=== PATIENT | female | born 1960 | race Caucasian/White ===

== ENCOUNTER → 2017-10-09 | Outpatient (CLI) | payer OTHER | END | disposition home or self-care (01) | LOC: LABWHC1 15:49 | PROVIDERS: ATTEND Internal Medicine Endocrinology, Diabetes & Metabolism | DX: E03.8 Other specified hypothyroidism (principal) | CPT/HCPCS: 36415; 84443 ==

== ENCOUNTER → 2017-12-05 | Outpatient (CLI) | payer OTHER | END | disposition home or self-care (01) | LOC: LABWHC1 11:31 | PROVIDERS: ATTEND Internal Medicine Endocrinology, Diabetes & Metabolism | DX: E03.8 Other specified hypothyroidism (principal) | CPT/HCPCS: 36415; 84443 ==

== ENCOUNTER → 2018-06-11 | Outpatient (CLI) | payer OTHER | LOC: LABWHC1 15:56 | PROVIDERS: ATTEND Internal Medicine Endocrinology, Diabetes & Metabolism | DX: E03.8 Other specified hypothyroidism (principal) | CPT/HCPCS: 36415; 84443 ==

== ENCOUNTER 2019-07-03 15:08 | Observation (INO) | payer OTHER ==
[2019-07-03] MEDS ORDERED: SODIUM CHLORIDE 0.9% 1,000 ML IV STA (15:31)
[2019-07-03] MEDS ORDERED: DILTIAZEM DRIP BOLUS FROM BAG 1 MG SOLN IV ONE (15:31)
--- NOTE | 2019-07-03 15:35 | ED ---
General Adult HPI - General Chief complaint: Arrhythmia/Palpitations Stated complaint: Heart palpitations Time Seen by Provider: 07/03/19 15:18 Source: patient, family, RN notes reviewed Mode of arrival: ambulatory Limitations: no limitations - History of Present Illness Initial comments: Patient is a pleasant 59-year-old female presenting to the emergency Department with complaints of palpitations. Onset of symptoms was just over half hour ago. Symptoms are sudden onset. Patient did have some chest discomfort associated however that has resolved. Palpitations are more mild at this time. Patient has had similar symptoms previously however they usually only last several minutes. Patient has had problems with thyroid previously including being overmedicated. Patient did have recent change in medications. No history of previous diagnosis arrhythmia. - Related Data Home Medications Medication Instructions Recorded Confirmed Estradiol 3 mg PO BID 07/03/19 07/03/19 Levothyroxine Sodium [Tirosint] 137 mcg PO DAILY 07/03/19 07/03/19 Liothyronine Sodium [Cytomel] 5 mcg PO DAILY 07/03/19 07/03/19 Naproxen 250 mg PO Q12H PRN 07/03/19 07/03/19 Progesterone, Micronized 100 mg PO BID 07/03/19 07/03/19 [Progesterone] buPROPion XL [Wellbutrin Xl] 150 mg PO DAILY 07/03/19 07/03/19 Allergies Allergy/AdvReac Type Severity Reaction Status Date / Time No Known Allergies Allergy Verified 07/03/19 15:24 Review of Systems ROS Statement: Those systems with pertinent positive or pertinent negative responses have been documented in the HPI. ROS Other: All systems not noted in ROS Statement are negative. Constitutional: Denies: fever Eyes: Denies: eye pain ENT: Denies: ear pain Respiratory: Denies: dyspnea Cardiovascular: Reports: as per HPI, palpitations Endocrine: Denies: fatigue Gastrointestinal: Denies: abdominal pain Genitourinary: Denies: dysuria Musculoskeletal: Denies: back pain Skin: Denies: rash Neurological: Denies: weakness Past Medical History Past Medical History: Thyroid Disorder Additional Past Medical History / Comment(s): SCREENING History of Any Multi-Drug Resistant Organisms: None Reported Additional Past Surgical History / Comment(s): D & C Past Anesthesia/Blood Transfusion Reactions: No Reported Reaction Past Psychological History: Anxiety, Depression Smoking Status: Former smoker Past Alcohol Use History: None Reported Past Drug Use History: None Reported - Past Family History Mother History Unknown: Yes Additional Family Medical History / Comment(s): PT ADOPTED-HHX UNKNOWN General Exam Limitations: no limitations General appearance: alert, in no apparent distress Head exam: Present: normocephalic Eye exam: Present: normal appearance, PERRL ENT exam: Present: normal oropharynx Neck exam: Present: normal inspection Respiratory exam: Present: normal lung sounds bilaterally Cardiovascular Exam: Present: tachycardia, irregular rhythm Expanded Peripheral pulses: 2+: Radial (R), Radial (L), Posterior Tibialis (R), Posterior Tibialis (L), Dorsalis Pedis (R), Dorsalis Pedis (L) GI/Abdominal exam: Present: soft. Absent: tenderness Extremities exam: Present: normal inspection. Absent: pedal edema, calf tenderness Neurological exam: Present: alert Psychiatric exam: Present: normal affect, normal mood Skin exam: Present: normal color Course Vital Signs 07/03/19 07/03/19 15:09 16:17 Temperature 98.1 F 98.4 F Pulse Rate 152 H 112 H Respiratory 26 H 18 Rate Blood Pressure 107/74 126/98 O2 Sat by Pulse 100 100 Oximetry EKG Findings - EKG Comments: EKG Findings:: A. fib with RVR, rate 152. QRS 72. QT 292. QTC 464. Septal Q waves. Borderline inferior lateral ST depression. Medical Decision Making - Medical Decision Making Patient reevaluated and resting comfortably in bed. Heart rate improved with a rate between 96 and 104. Patient and family updated on results and plan. Dr. Haley has been paged for admission for this va patient. - Lab Data Result diagrams: 07/03/19 15:20 07/03/19 15:20 Lab Results 07/03/19 07/03/19 07/03/19 Range/Units 15:20 15:20 15:20 WBC 9.2 (3.8-10.6) k/uL RBC 3.96 (3.80-5.40) m/uL Hgb 13.2 (11.4-16.0) gm/dL Hct 40.5 (34.0-46.0) % MCV 102.5 H (80.0-100.0) fL MCH 33.3 (25.0-35.0) pg MCHC 32.5 (31.0-37.0) g/dL RDW 12.4 (11.5-15.5) % Plt Count 254 (150-450) k/uL Neutrophils % 54 % Lymphocytes % 36 % Monocytes % 3 % Eosinophils % 2 % Basophils % 1 % Neutrophils # 5.0 (1.3-7.7) k/uL Lymphocytes # 3.3 (1.0-4.8) k/uL Monocytes # 0.3 (0-1.0) k/uL Eosinophils # 0.2 (0-0.7) k/uL Basophils # 0.1 (0-0.2) k/uL Macrocytosis Slight PT 10.8 (9.0-12.0) sec INR 1.0 (<1.2) APTT 21.2 L (22.0-30.0) sec Sodium 132 L (137-145) mmol/L Potassium 4.7 (3.5-5.1) mmol/L Chloride 104 (98-107) mmol/L Carbon Dioxide 18 L (22-30) mmol/L Anion Gap 10 mmol/L BUN 16 (7-17) mg/dL Creatinine 0.88 (0.52-1.04) mg/dL Est GFR (CKD-EPI)AfAm 84 (>60 ml/min/1.73 sqM) Est GFR (CKD-EPI)NonAf 73 (>60 ml/min/1.73 sqM) Glucose 173 H (74-99) mg/dL Calcium 9.1 (8.4-10.2) mg/dL Magnesium 1.8 (1.6-2.3) mg/dL Total Bilirubin 0.4 (0.2-1.3) mg/dL AST 81 H (14-36) U/L ALT 50 H (4-34) U/L Alkaline Phosphatase 70 (38-126) U/L Troponin I (0.000-0.034) ng/mL Total Protein 6.6 (6.3-8.2) g/dL Albumin 4.2 (3.5-5.0) g/dL TSH 1.040 (0.465-4.680) mIU/L Free T4 1.25 (0.78-2.19) ng/dL Free T3 pg/mL 3.5 (2.8-5.3) pg/ml 03/07/20 Range/Units 15:20 WBC (3.8-10.6) k/uL RBC (3.80-5.40) m/uL Hgb (11.4-16.0) gm/dL Hct (34.0-46.0) % MCV (80.0-100.0) fL MCH (25.0-35.0) pg MCHC (31.0-37.0) g/dL RDW (11.5-15.5) % Plt Count (150-450) k/uL Neutrophils % % Lymphocytes % % Monocytes % % Eosinophils % % Basophils % % Neutrophils # (1.3-7.7) k/uL Lymphocytes # (1.0-4.8) k/uL Monocytes # (0-1.0) k/uL Eosinophils # (0-0.7) k/uL Basophils # (0-0.2) k/uL Macrocytosis PT (9.0-12.0) sec INR (<1.2) APTT (22.0-30.0) sec Sodium (137-145) mmol/L Potassium (3.5-5.1) mmol/L Chloride (98-107) mmol/L Carbon Dioxide (22-30) mmol/L Anion Gap mmol/L BUN (7-17) mg/dL Creatinine (0.52-1.04) mg/dL Est GFR (CKD-EPI)AfAm (>60 ml/min/1.73 sqM) Est GFR (CKD-EPI)NonAf (>60 ml/min/1.73 sqM) Glucose (74-99) mg/dL Calcium (8.4-10.2) mg/dL Magnesium (1.6-2.3) mg/dL Total Bilirubin (0.2-1.3) mg/dL AST (14-36) U/L ALT (4-34) U/L Alkaline Phosphatase (38-126) U/L Troponin I <0.012 (0.000-0.034) ng/mL Total Protein (6.3-8.2) g/dL Albumin (3.5-5.0) g/dL TSH (0.465-4.680) mIU/L Free T4 (0.78-2.19) ng/dL Free T3 pg/mL (2.8-5.3) pg/ml - Radiology Data Radiology results: image reviewed (Chest x-ray shows no acute process) Critical Care Time Critical Care Time: Yes Total Critical Care Time: 33 Disposition Clinical Impression: Atrial fibrillation with RVR Disposition: ADMITTED IP TO THIS HOSP Is patient prescribed a controlled substance at d/c from ED?: No Referrals: [facility],Clinic [Primary Care Provider] - 1-2 days Decision Time: 16:38
[2019-07-03] MEDS ORDERED: DILTIAZEM 125 MG in SODIUM CHLORIDE 0.9% 100 ML IV SCH (15:45)
--- NOTE | 2019-07-03 15:46 | XR ---
EXAMINATION TYPE: XR chest 2V DATE OF EXAM: 07/03/2019 COMPARISON: NONE HISTORY: Dysrhythmia TECHNIQUE: 2 views FINDINGS: Heart and mediastinum are normal. Lungs are clear. Diaphragm is normal. Bony thorax appears normal. IMPRESSION: Normal chest.
[2019-07-03 15:52] LABS: Basophils # (A) 0.1 k/uL (0-0.2); Basophils % (A) 1 %; Eosinophils # (A) 0.2 k/uL (0-0.7); Eosinophils % (A) 2 %; HCT 40.5 % (34.0-46.0); HGB 13.2 gm/dL (11.4-16.0); Lymphocytes # (A) 3.3 k/uL (1.0-4.8); Lymphocytes % (A) 36 %; MCH 33.3 pg (25.0-35.0); MCHC 32.5 g/dL (31.0-37.0); MCV 102.5 fL (80.0-100.0); Macrocytosis Slight; Mean Platelet Volume 9.9; Monocytes # (A) 0.3 k/uL (0-1.0); Monocytes % (A) 3 %; Neutrophils % (A) 54 %; Platelet Count 254 k/uL (150-450); RBC 3.96 m/uL (3.80-5.40); RDW 12.4 % (11.5-15.5); WBC 9.2 k/uL (3.8-10.6)
[2019-07-03 16:02] LABS: Albumin 4.2 g/dL (3.5-5.0); Calcium 9.1 mg/dL (8.4-10.2); Magnesium 1.8 mg/dL (1.6-2.3); Potassium 4.7 mmol/L (3.5-5.1); Total Bilirubin 0.4 mg/dL (0.2-1.3); Total Protein 6.6 g/dL (6.3-8.2)
[2019-07-03 16:19] LABS: T4, Free (Free Thyroxine) 1.25 ng/dL (0.78-2.19)
[2019-07-03 16:20] LABS: Prothrombin Time 10.8 sec (9.0-12.0)
[2019-07-03 16:21] LABS: Partial Thromboplastin Time 21.2 sec (22.0-30.0)
[2019-07-03] MEDS ORDERED: HEPARIN SODIUM,PORCINE 5,000 UNIT/ML 1 ML VIAL IV ONE (16:38)
[2019-07-03] MEDS ORDERED: ASPIRIN 81 MG PO STA (16:38)
[2019-07-03] MEDS ORDERED: HEPARIN SODIUM,PORCINE 5,000 UNIT/ML 1 ML VIAL IV PRN (16:38)
[2019-07-03] MEDS ORDERED: NITROGLYCERIN SL TABS 0.4 MG TAB SUBLINGUAL PRN (16:38)
[2019-07-03] MEDS ORDERED: HEPARIN SOD,PORK IN 0.45% NACL 25,000 UNIT in 0.45% NACL 1 250ML.BAG IV SCH (16:45)
[2019-07-03] MEDS ORDERED: NAPROXEN 250 MG TAB PO PRN (18:33)
[2019-07-03] MEDS ORDERED: LORazepam 0.5 MG TAB PO PRN (18:37)
[2019-07-03] MEDS ORDERED: ACETAMINOPHEN TAB 500 MG TAB PO PRN (18:37)
[2019-07-03] MEDS ORDERED: TEMAZEPAM 15 MG CAP PO PRN (18:37)
[2019-07-03] MEDS: ESTRADIOL 0.5 MG TAB PO SCH (21:06)
--- NOTE | 2019-07-03 22:21 | HP ---
HISTORY AND PHYSICAL DATE OF SERVICE: 07/03/2019 CHIEF COMPLAINT: Chest pain. HISTORY OF PRESENT ILLNESS: This 59-year-old woman with a past medical history of multiple medical history hypothyroidism, history of history of anxiety and depression being followed by [facility] and in the outpatient setting is complaining of significant palpitations today. The patient felt some chest discomfort also and the symptoms of sudden onset. The patient came to [facility] and was found to be in atrial fibrillation with fast ventricular rate. The patient is on Cardizem drip and heart rate converted to normal sinus rhythm. The patient being monitored closely. There is no history of fever, rigors, chills, shortness of breath, hematochezia, melena at this time. PAST MEDICAL HISTORY: Hypothyroidism, D and C, anxiety, depression, history of nicotine dependence. MEDICATIONS: Prior to admission include: 1. Wellbutrin SR 150 mg p.o. b.i.d. 2. Naprosyn 250 mg b.i.d. p.r.n. 3. Tirosint 37 mcg p.o. daily. 4. Progesterone 100 mg p.o. 5. Estradiol 3 mg p.o. b.i.d. 6. Cytomel 5 mcg p.o. daily. ALLERGIES: None. FAMILY HISTORY: The patient is adopted, unknown. SOCIAL HISTORY: Previous history of smoking. Occasional alcohol intake. REVIEW OF SYSTEMS: ENT: No diminished vision. No diminished hearing. CARDIOVASCULAR SYSTEM: As mentioned earlier. RESPIRATORY: As mentioned earlier. GI no nausea or vomiting. no dysuria. Nervous system: No numbness or weakness. Allergy/Immunology: No asthma or hayfever. Musculoskeletal as mentioned earlier. Hematology/Oncology: No history of anemia. ENDOCRINE: No history of diabetes or hypothyroidism. CONSTITUTIONAL: As mentioned earlier. Dermatology: Negative. Rheumatology: Negative. Psychiatric: As mentioned earlier. PHYSICAL EXAMINATION: Alert and oriented times three. Pulse is 87. Previous pulse 152, blood pressure 106/74, respiration 26, temperature 98.4. Pulse ox 100 percent on room air. HEENT: Conjunctivae normal. NECK: No JVD. CARDIAC: S1, S2 muffled. No S3, no S4. RESPIRATION: Breath sounds diminished in the bases. No rhonchi. No crackles. ABDOMEN: Soft, nontender. No mass palpable. LEGS: No edema. No swelling. NERVOUS SYSTEM: Higher function as mentioned earlier. Moves all 4 limbs. No focal motor or sensory deficits. LYMPHATICS: No lymph nodes palpable in the neck, axillae or groin. SKIN no ulcers, no rashes and no bleeding. JOINTS: No active deforming arthropathy. LABS: WBC 9.3, MCV 102.5, and sodium is 132, CO2 is 18. Glucose 173, AST is 81, ALT is 50. ASSESSMENT: 1. Atrial fibrillation with fast ventricular rate. 2. Paroxysmal atrial fibrillation. 3. Increased AST/ALT. 4. Increased random blood sugar. 5. Hyponatremia. 6. Decreased CO2. 7. Increased MCV. 8. History of hypothyroidism. 9. Anxiety, depression. 10.Remote history of nicotine dependence. RECOMMENDATIONS AND DISCUSSION: In this 59-year-old woman who presented with multiple medical issues, we will monitor the patient closely, continue the current medications, management and symptomatic treatment. Otherwise cardiology consultation. We will recommend a 2D echo with Doppler in the morning and otherwise resume the home medications. The prognosis guarded because of multiple complex medical issues. further recommendations to follow. A copy of this dictation being forwarded to Dr. Hardwick who is following the patient in the outpatient setting. MMODL / IJN: [id number] / MTDD
[2019-07-03] MEDS: buPROPion SR 150 MG TABLET.ER PO SCH (22:33)
[2019-07-03] MEDS: PROGESTERONE MICRONIZED 100 MG PO SCH (22:34)
[2019-07-03 23:26] LABS: Appearance,Urine Clear (Clear); Bilirubin,Urine Negative (Negative); Blood,Urine Negative (Negative); Color,Urine Light Yellow; Glucose,Urine (UA) Negative (Negative); Ketones,Urine 1+ (Negative); Leukocyte Esterase,Urine Negative (Negative); Nitrite,Urine Negative (Negative); PH, Urine 5.5 (5.0-8.0); Protein,Urine Negative (Negative); Urobilinogen,Urine <2.0 mg/dL (<2.0)
[2019-07-04 03:59] LABS: Basophils # (A) 0.1 k/uL (0-0.2); Basophils % (A) 1 %; Eosinophils # (A) 0.2 k/uL (0-0.7); Eosinophils % (A) 2 %; HCT 32.3 % (34.0-46.0); HGB 10.5 gm/dL (11.4-16.0); Lymphocytes # (A) 2.3 k/uL (1.0-4.8); Lymphocytes % (A) 34 %; MCHC 32.4 g/dL (31.0-37.0); MCV 101.7 fL (80.0-100.0); Monocytes # (A) 0.3 k/uL (0-1.0); Monocytes % (A) 4 %; Neutrophils # (A) 3.7 k/uL (1.3-7.7); Neutrophils % (A) 56 %; Platelet Count 187 k/uL (150-450); RBC 3.18 m/uL (3.80-5.40); RDW 12.5 % (11.5-15.5); WBC 6.6 k/uL (3.8-10.6)
[2019-07-04 04:03] LABS: ALT 47 U/L (4-34); AST 48 U/L (14-36); African American GFR (CKD) >90 (>60 ml/min/1.73 sqM); Alkaline Phosphatase 42 U/L (38-126); Anion Gap 2 mmol/L; Blood Urea Nitrogen 13 mg/dL (7-17); Calcium 8.3 mg/dL (8.4-10.2); Carbon Dioxide 20 mmol/L (22-30); Chloride 111 mmol/L (98-107); Cholesterol 113 mg/dL (<200); Glucose 85 mg/dL (74-99); HDL Cholesterol 85 mg/dL (40-60); LDL Cholesterol,Calculated 10 mg/dL (0-99); Non-African American GFR(CKD) >90 (>60 ml/min/1.73 sqM); Potassium 4.2 mmol/L (3.5-5.1); Sodium 133 mmol/L (137-145); Total Bilirubin 0.3 mg/dL (0.2-1.3); Total Protein 5.3 g/dL (6.3-8.2); Triglycerides 91 mg/dL (<150)
[2019-07-04] MEDS ORDERED: LEVOTHYROXINE 137 MCG TAB PO SCH (06:30)
[2019-07-04] MEDS ORDERED: PANTOPRAZOLE 40 MG TABLET PO SCH (07:30)
[2019-07-04] MEDS ORDERED: LIOTHYRONINE SODIUM 5 MCG TAB PO SCH (09:00)
[2019-07-04] MEDS ORDERED: ASPIRIN 325 MG TAB PO SCH (09:00)
[2019-07-04] MEDS ORDERED: buPROPion XL 150 MG TAB.ER.24H PO SCH (09:00)
[2019-07-04] MEDS: buPROPion SR 150 MG TABLET.ER PO SCH (09:46)
[2019-07-04] MEDS: ESTRADIOL 0.5 MG TAB PO SCH (09:53)
[2019-07-04] MEDS: PROGESTERONE MICRONIZED 100 MG PO SCH (09:54)
--- NOTE | 2019-07-04 10:39 | P.CRDCN ---
History of Present Illness Consult date: 07/04/19 Requesting physician: Marce Haley Reason for Consult (text): New onset AF w/RVR Chief complaint: palpitations, near syncope History of present illness: This a pleasant 59-year-old female patient with history of hypothyroidism and complaints of palpitations over the past year. According to the patient, she recently began following with an mobile heavy equipment operator who changed her thyroid medications about 10 days ago. At that time she was noted to have a heart rate of around 140 while in the office but no EKG or further workup was done at that time. She has been having palpitations over the last year lasting a few minutes with no other symptoms. She presented to the emergency department yesterday with complaints of palpitations that were ongoing for at least a half hour as well as some associated dizziness, lightheadedness and near syncope as well as nausea and vomiting. EKG on presentation showed A. fib with RVR. She has not been previously diagnosed with atrial fibrillation in the past. Labs on admission showed BUN is 16, creatinine 0.88, troponins negative 3, normal TSH, free T4 and free T3. Was initially bolused and started on Cardizem drip at 5 mg an hour and subsequently converted to sinus rhythm while in the emergency department. She remains on heparin drip. Since arrival to the nursing unit blood pressure has been high 135-154/80 heart rate has been in the 70s to 90s. Overall she's feeling well. She denies any chest discomfort, shortness of breath, orthopnea, PND, or edema. She is a former smoker, quit many years ago, and drinks socially usually just one beer. She denies a history of snoring. No signs of sleep apnea. Past Medical History Past Medical History: Thyroid Disorder Additional Past Medical History / Comment(s): SCREENING History of Any Multi-Drug Resistant Organisms: None Reported Additional Past Surgical History / Comment(s): D & C Past Anesthesia/Blood Transfusion Reactions: No Reported Reaction Past Psychological History: Anxiety, Depression Smoking Status: Never smoker Past Alcohol Use History: None Reported Additional Past Alcohol Use History / Comment(s): QUIT SMOKING 20 YEARS AGO Past Drug Use History: None Reported - Past Family History Mother History Unknown: Yes Additional Family Medical History / Comment(s): PT ADOPTED-HHX UNKNOWN Medications and Allergies Home Medications Medication Instructions Recorded Confirmed Type Estradiol 3 mg PO BID 07/03/19 07/03/19 History Levothyroxine Sodium [Tirosint] 137 mcg PO DAILY 07/03/19 07/03/19 History Liothyronine Sodium [Cytomel] 5 mcg PO DAILY 07/03/19 07/03/19 History Naproxen 250 mg PO Q12H PRN 07/03/19 07/03/19 History Progesterone, Micronized 100 mg PO BID 07/03/19 07/03/19 History [Progesterone] buPROPion HCL [Wellbutrin SR] 150 mg PO BID 07/03/19 07/03/19 History Allergies Allergy/AdvReac Type Severity Reaction Status Date / Time No Known Allergies Allergy Verified 07/03/19 15:24 Physical Exam Vitals: Vital Signs Temp Pulse Pulse Resp BP BP Pulse Ox 07/04/19 05:00 97.6 F 76 14 135/80 98 07/04/19 00:37 98.0 F 78 14 145/82 98 07/03/19 22:14 97.6 F 75 16 154/87 97 07/03/19 22:10 97.6 F 97 16 154/87 97 07/03/19 18:48 97.7 F 73 18 132/82 100 07/03/19 17:19 97.9 F 87 18 108/82 100 07/03/19 16:17 98.4 F 112 H 18 126/98 100 07/03/19 15:09 98.1 F 152 H 26 H 107/74 100 Intake and Output 07/03/19 07/04/19 07/04/19 21:59 06:59 14:59 Intake Total 480 Balance 480 Intake: Intake, IV Titration Amount Heparin Sod,Pork in 0.45% NaCl 25,000 unit In 0.45 % NaCl 1 250ml.bag @ 12 UNITS/KG/HR 7.893 mls/hr IV .Q24H PRANAY Rx#: [id number] Sodium Chloride 0.9% 1, 000 ml @ 75 mls/hr IV . [id number] STA Rx#:[id number] Oral 480 Other: # Voids Weight PHYSICAL EXAMINATION: HEENT: Head is atraumatic, normocephalic. Pupils equal, round. Neck is supple. There is no elevated jugular venous pressure. HEART EXAMINATION: Heart sounds regular, S1 and S2 with a systolic murmur. CHEST EXAMINATION: Lungs are clear to auscultation and precussion. No chest wall tenderness is noted on palpation or with deep breathing. ABDOMEN: Soft, nontender. Bowel sounds are heard. No organomegaly noted. EXTREMITIES: 2+ peripheral pulses with no evidence of peripheral edema and no calf tenderness noted. NEUROLOGIC patient is awake, alert and oriented x3. . Results 07/04/19 03:22 07/04/19 03:22 Cardiac Enzymes 07/03/19 07/03/19 07/03/19 Range/Units 15: 15: 21:29 AST 81 H (14-36) U/L Troponin I <0.012 0.031 (0.000-0.034) ng/mL 07/04/19 07/04/19 Range/Units : 03: AST 48 H (14-36) U/L Troponin I 0.017 (0.000-0.034) ng/mL Coagulation 07/03/19 07/03/19 07/04/19 Range/Units 15: 21:29 03: PT 10.8 (9.0-12.0) sec APTT 21.2 L 40.0 H 42.6 H (22.0-30.0) sec Lipids 07/04/19 Range/Units 03: Triglycerides 91 (<150) mg/dL Cholesterol 113 (<200) mg/dL HDL Cholesterol 85 H (40-60) mg/dL CBC 07/03/19 07/04/19 Range/Units 15: 03: WBC 9.2 6.6 (3.8-10.6) k/uL RBC 3.96 3.18 L (3.80-5.40) m/uL Hgb 13.2 10.5 L (11.4-16.0) gm/dL Hct 40.5 32.3 L (34.0-46.0) % Plt Count 254 187 (150-450) k/uL Comprehensive Metabolic Panel 07/03/19 07/04/19 Range/Units 15:20 03:22 Sodium 132 L 133 L (137-145) mmol/L Potassium 4.7 4.2 (3.5-5.1) mmol/L Chloride 104 111 H (98-107) mmol/L Carbon Dioxide 18 L 20 L (22-30) mmol/L BUN 16 13 (7-17) mg/dL Creatinine 0.88 0.67 (0.52-1.04) mg/dL Glucose 173 H 85 (74-99) mg/dL Calcium 9.1 8.3 L (8.4-10.2) mg/dL AST 81 H 48 H (14-36) U/L ALT 50 H 47 H (4-34) U/L Alkaline Phosphatase 70 42 (38-126) U/L Total Protein 6.6 5.3 L (6.3-8.2) g/dL Albumin 4.2 3.0 L (3.5-5.0) g/dL Current Medications Generic Name Dose Route Start Last Admin Trade Name Freq PRN Reason Stop Dose Admin Acetaminophen 500 mg 07/03/19 18:37 Tylenol Tab PO Q6HR PRN Fever and/ or Pain Aspirin 325 mg 07/04/19 09:00 07/04/19 09:52 Aspirin PO 325 mg DAILY PRANAY Administration Bupropion HCl 150 mg 07/03/19 21:00 07/04/19 09:46 Wellbutrin Sr PO 150 mg BID PRANAY Administration Estradiol 3 mg 07/03/19 21:00 07/04/19 09:53 Estrace PO Not Given BID PRANAY Heparin Sodium (Porcine) 0 unit 07/03/19 16:38 07/03/19 22:59 Heparin IV 1,644 unit Q6HR PRN Administration Low PTT Protocol Heparin Sodium/Sodium Chloride 250 mls @ 7.893 mls/hr 07/03/19 16:45 07/04/19 04:53 25,000 unit/ Sodium Chloride IV 16 units/kg/hr .Q24H PRANAY 10.523 mls/hr Titration Protocol 12 UNITS/KG/HR Levothyroxine Sodium 137 mcg 07/04/19 06:30 07/04/19 06:04 Synthroid PO Not Given DAILY@0630 PRANAY Liothyronine Sodium 5 mcg 07/04/19 09:00 07/04/19 09:54 Cytomel PO Not Given DAILY PRANAY Lorazepam 0.5 mg 07/03/19 18:37 07/03/19 22:37 Ativan PO 0.5 mg Q8HR PRN Administration Anxiety Naproxen 250 mg 07/03/19 18:33 Naprosyn PO Q12H PRN PAIN AND HEADACHE Nitroglycerin 0.4 mg 07/03/19 16:38 Nitrostat SUBLINGUAL Q5M PRN Chest Pain Non-Formulary Medication 100 mg 07/03/19 21:00 07/04/19 09:54 Progesterone, Micronized [Progesterone] PO Not Given BID PRANAY Pantoprazole Sodium 40 mg 07/04/19 07:30 07/04/19 06:40 Protonix PO Not Given AC-BRKFST PRANAY Sodium Chloride 10 ml 07/03/19 21:00 07/04/19 09:53 Saline Flush IV Not Given BID PRANAY Temazepam 15 mg 07/03/19 18:37 Restoril PO HS PRN Insomnia Intake and Output 07/03/19 07/04/19 07/04/19 21:59 06:59 14:59 Intake Total 480 Balance 480 Intake: Intake, IV Titration Amount Heparin Sod,Pork in 0.45% NaCl 25,000 unit In 0.45 % NaCl 1 250ml.bag @ 12 UNITS/KG/HR 7.893 mls/hr IV .Q24H PRANAY Rx#: [id number] Sodium Chloride 0.9% 1, 000 ml @ 75 mls/hr IV . [id number] STA Rx#:[id number] Oral 480 Other: # Voids Weight 07/04/19 03:22 07/04/19 03:22 EKG Interpretations (text) Initially showed atrial fibrillation with rapid ventricular response with subsequent EKG showing normal sinus rhythm Assessment and Plan Assessment: #1 new onset paroxysmal atrial fibrillation with rapid ventricular response, currently maintaining sinus mechanism #2 hypothyroidism #3 elevated blood pressure without diagnosis of hypertension Plan: From cardiology's perspective, we will discontinue heparin and start Eliquis. We will add low-dose beta yee. From my standpoint, patient may be discharged home and will have an echocardiogram done as an outpatient in our office. We will follow-up with her in about 2 weeks. We will obtain a 30 day event monitor to assess frequency of atrial fibrillation. MACHINE EGG WASHER note has been reviewed, I agree with a documented findings and plan of care. Patient was seen and examined.
[2019-07-04] MEDS ORDERED: METOPROLOL TARTRATE 25 MG TAB PO SCH (11:30)
[2019-07-04] MEDS ORDERED: APIXABAN 5 MG TAB PO SCH (11:30)
[2019-07-04 13:14] VITALS: RESP 18
[2019-07-04 13:16] VITALS: BP 118/77; PULSE 68; TEMP 97.7
--- NOTE | 2019-07-05 09:07 | DS ---
DISCHARGE SUMMARY DATE OF SERVICE: 07/04/2019 FINAL DIAGNOSES: 1. Atrial fibrillation with a fast ventricular rate, paroxysmal. 2. Increased AST, ALT. 3. Increased random blood sugar. 4. Hyponatremia. 5. Decreased CO2. 6. Increased MCV. 7. History of hypothyroidism. 8. Anxiety, depression. 9. Remote history of nicotine dependence. DISCHARGE DISPOSITION: The patient will be discharged in stable condition with guarded prognosis. HISTORY OF PRESENT ILLNESS: This 59-year-old woman with a past medical history of multiple medical problems being followed by [facility] was admitted with atrial fibrillation with fast ventricular rate and the patient was monitored closely. Cardizem was initiated. Patient reverted to normal sinus rhythm. Cardiology recommended outpatient followup. On exam, vitals are stable. CARDIOVASCULAR: S1, S2 muffled. ABDOMEN: Soft. NERVOUS SYSTEM: No focal deficits. DISCHARGE ADVICE AND MEDICATIONS: 1. Diet is cardiac. 2. Activity limited until followup. 3. Follow up with Dr. Bauer in 2 weeks. 4. Follow up at the [facility] in [place] as recommended. 5. Consider possible outpatient stress test later with follow-up appointments. MEDICATIONS: 1. Cytomel 5 mcg p.o. daily. 2. Estradiol 3 mg p.o. b.i.d. 3. Naprosyn p.r.n. 4. Progesterone 100 mg p.o. b.i.d. 5. Tirosint 137 mcg p.o. daily. 6. Wellbutrin SR 150 mg p.o. b.i.d. 7. Eliquis 5 mg p.o. b.i.d. 8. Lopressor 25 mg p.o. b.i.d. Once again, the patient will be discharged in stable condition with guarded prognosis. MMODL / IJN: [id number] /
== END 2019-07-04 15:00 | disposition home or self-care (01) ==
LOC: EC 15:08 → 3SCARD 16:46
PROVIDERS: ADMIT Hospitalist; ATTEND Hospitalist
DX: I48.0 Paroxysmal atrial fibrillation (principal); R74.0 Nonspecific elevation of levels of transaminase and lactic acid dehydrogenase [LDH]; R71.8 Other abnormality of red blood cells; R73.9 Hyperglycemia, unspecified; E03.9 Hypothyroidism, unspecified; E87.1 Hypo-osmolality and hyponatremia; F32.9 Major depressive disorder, single episode, unspecified; F41.9 Anxiety disorder, unspecified; Z79.890 Hormone replacement therapy; Z87.891 Personal history of nicotine dependence; Z79.899 Other long term (current) drug therapy; R79.81 Abnormal blood-gas level; R03.0 Elevated blood-pressure reading, without diagnosis of hypertension
CPT/HCPCS: 96376 ×2; 96366 ×3; 93005 ×2; 96365; 99291; 36415; 84439; 84481; 80061; 80053 ×2; 83735; 84443; 84484 ×2; 85025 ×2; 85610; 85730 ×2; 81003; 71046; G0378 ×2; J1644 ×2; S0106 ×2

== ENCOUNTER → 2019-09-09 | Outpatient (CLI) | payer OTHER ==
--- NOTE | 2019-09-09 12:08 | US ---
LOWER EXTREMITY VENOUS INSUFFICIENCY CLINICAL HISTORY: I83.893 Varicose veins of bilateral lower extremity. Swelling. SIDE PERFORMED: Bilateral 1) Color flow is present and patency is documented in the following vessels. No DVT or SVT is noted . EIV Common Femoral Vein Deep Femoral Vein Femoral Vein Popliteal Vein Proximal Calf Veins Greater Saph Vein Upper Small Saph Vein 2) There is venous reflux noted at the following venous levels: Mild reflux seen at level of EIV. No other reflux noted. IMPRESSION: No US evidence for acute DVT in either lower extremity.
== END | disposition home or self-care (01) ==
LOC: RADUSWWP 10:25
PROVIDERS: ATTEND Internal Medicine Cardiovascular Disease
DX: I83.893 Varicose veins of bilateral lower extremities with other complications (principal)
CPT/HCPCS: 93970

== ENCOUNTER 2021-07-10 16:00 | Inpatient (IN) | payer OTHER ==
[2021-07-10] MEDS ORDERED: ASPIRIN 81 MG PO STA (16:08)
[2021-07-10] MEDS ORDERED: SODIUM CHLORIDE 0.9% 500 ML 500 ML IV STA (16:08)
--- NOTE | 2021-07-10 16:17 | ED ---
General Adult HPI - General Stated complaint: tachycardia Time Seen by Provider: 07/10/21 16:00 Source: patient, RN notes reviewed, old records reviewed - History of Present Illness Initial comments: This is a 61-year-old female presents emergency department with past medical history significant for atrial fibrillation. Patient states she was cardioverted a while ago and put on flecainide. Patient states the reduced her dose and about a week ago she noted she was very tachycardic at about 140 beats a minute. Patient states she forgot to take her full dose of metoprolol. Patient states today she did take a double dose at noon because she was having quite a bit of chest pain and tachycardia. Patient continues to have chest pain and be diaphoretic. Patient also complains of some mild shortness of breath. In route patient's heart rate was about 140s to 150 beats a minute. Patient states the pain is a little bit better but it definitely is continuing. Patient denies any recent fever chills or cough. Patient denies abdominal pain patient denies nausea vomiting diarrhea. - Related Data Home Medications Medication Instructions Recorded Confirmed Estradiol 3 mg PO BID 07/03/19 07/03/19 Levothyroxine Sodium [Tirosint] 137 mcg PO DAILY 07/03/19 07/03/19 Liothyronine Sodium [Cytomel] 5 mcg PO DAILY 07/03/19 07/03/19 Naproxen 250 mg PO Q12H PRN 07/03/19 07/03/19 Progesterone, Micronized 100 mg PO BID 07/03/19 07/03/19 [Progesterone] buPROPion HCL [Wellbutrin SR] 150 mg PO BID 07/03/19 07/03/19 Previous Rx's Medication Instructions Recorded Apixaban [Eliquis] 5 mg PO BID #60 tab 07/04/19 Metoprolol Tartrate [Lopressor] 25 mg PO BID #60 tab 07/04/19 Allergies Allergy/AdvReac Type Severity Reaction Status Date / Time No Known Allergies Allergy Verified 07/03/19 15:24 Review of Systems ROS Statement: Those systems with pertinent positive or pertinent negative responses have been documented in the HPI. ROS Other: All systems not noted in ROS Statement are negative. Past Medical History Past Medical History: Thyroid Disorder Additional Past Medical History / Comment(s): SCREENING History of Any Multi-Drug Resistant Organisms: None Reported Additional Past Surgical History / Comment(s): D & C Past Anesthesia/Blood Transfusion Reactions: No Reported Reaction Past Psychological History: Anxiety, Depression Past Alcohol Use History: None Reported Additional Past Alcohol Use History / Comment(s): QUIT SMOKING 20 YEARS AGO Past Drug Use History: None Reported - Past Family History Mother History Unknown: Yes Additional Family Medical History / Comment(s): PT ADOPTED-HHX UNKNOWN General Exam - General Exam Comments Initial Comments: GENERAL: Patient is well-developed and well-nourished. Patient is nontoxic and well- hydrated and is in mild distress. ENT: Neck is soft and supple. No significant lymphadenopathy is noted. Oropharynx is clear. Moist mucous membranes. Neck has full range of motion without elic iting any pain. EYES: The sclera were anicteric and conjunctiva were pink and moist. Extraocular movements were intact and pupils were equal round and reactive to light. Eyelids were unremarkable. PULMONARY: Unlabored respirations. Good breath sounds bilaterally. No audible rales rhonchi or wheezing was noted. CARDIOVASCULAR: Patient is tachycardic at about 140 beats a minute and it is regular ABDOMEN: Soft and nontender with normal bowel sounds. SKIN: Skin is clear with no lesions or rashes and otherwise unremarkable. NEUROLOGIC: Patient is alert and oriented x3. Cranial nerves II through XII are grossly intact. Motor and sensory are also intact. Normal speech, volume and content. Symmetrical smile. MUSCULOSKELETAL: Normal extremities with adequate strength and full range of motion. No lower extremity swelling or edema. No calf tenderness. LYMPHATICS: No significant lymphadenopathy is noted PSYCHIATRIC: Normal psychiatric evaluation. Course Vital Signs 07/10/21 07/10/21 16:10 16:37 Temperature 97.6 F Pulse Rate 141 H Respiratory 18 Rate Blood Pressure 125/91 82/42 O2 Sat by Pulse 98 Oximetry Medical Decision Making - Medical Decision Making EKG shows atrial flutter with a rapid ventricular response at 141 bpm QRS is 159 Q-T intervals 363 QTC is 445. Patient has a left bundle branch block this is new from her last EKG on record. I spoke with Dr. Hannah he wanted EKG sent to him and we faxed it to him. Dr. Hannah received EKG I called me back and wanted me to call a STEMI immediately. He did not want any heparin or amiodarone at this time. Patient was prepped for Flat Bed Knitter. Patient decompensated further slight cardioverted the person to get the person 3 of Versed. I used 50 J to cardiovert and she cardioverted and went into a normal sinus rhythm and blood pressure was back in the normal range. Patient however was severely sedated because of Versed and not breathing very well so I gave 0.1 of Romazicon and the patient woke up and was able to converse. EKG after cardioversion shows sinus bradycardia 58 bpm NV interval is on a 7 QRS is 99 Q-T intervals 462 QTC is 459. Patient's EKG shows no ST segment elevation or depression. - Lab Data Result diagrams: 07/10/21 16:10 07/10/21 16:10 Lab Results 07/10/21 07/10/21 07/10/21 Range/Units 16:10 16:10 16:10 WBC 9.3 (3.8-10.6) k/uL RBC 3.58 L (3.80-5.40) m/uL Hgb 13.0 (11.4-16.0) gm/dL Hct 39.3 (34.0-46.0) % MCV 109.8 H (80.0-100.0) fL MCH 36.3 H (25.0-35.0) pg MCHC 33.0 (31.0-37.0) g/dL RDW 13.0 (11.5-15.5) % Plt Count 202 (150-450) k/uL MPV 8.4 Neutrophils % 67 % Lymphocytes % 25 % Monocytes % 3 % Eosinophils % 2 % Basophils % 1 % Neutrophils # 6.3 (1.3-7.7) k/uL Lymphocytes # 2.3 (1.0-4.8) k/uL Monocytes # 0.3 (0-1.0) k/uL Eosinophils # 0.2 (0-0.7) k/uL Basophils # 0.1 (0-0.2) k/uL Macrocytosis Marked A PT 11.5 (9.0-12.0) sec INR 1.1 (<1.2) APTT 22.2 (22.0-30.0) sec Sodium 133 L (137-145) mmol/L Potassium 5.6 H (3.5-5.1) mmol/L Chloride 106 (98-107) mmol/L Carbon Dioxide 21 L (22-30) mmol/L Anion Gap 6 mmol/L BUN 22 H (7-17) mg/dL Creatinine 1.24 H (0.52-1.04) mg/dL Est GFR (CKD-EPI)AfAm 55 (>60 ml/min/1.73 sqM) Est GFR (CKD-EPI)NonAf 47 (>60 ml/min/1.73 sqM) Glucose 162 H (74-99) mg/dL Calcium 8.7 (8.4-10.2) mg/dL Magnesium 2.1 (1.6-2.3) mg/dL Total Bilirubin 0.7 (0.2-1.3) mg/dL AST 54 H (14-36) U/L ALT 27 (4-34) U/L Alkaline Phosphatase 58 (38-126) U/L Troponin I (0.000-0.034) ng/mL Total Protein 6.0 L (6.3-8.2) g/dL Albumin 3.6 (3.5-5.0) g/dL 07/10/21 Range/Units 16:10 WBC (3.8-10.6) k/uL RBC (3.80-5.40) m/uL Hgb (11.4-16.0) gm/dL Hct (34.0-46.0) % MCV (80.0-100.0) fL MCH (25.0-35.0) pg MCHC (31.0-37.0) g/dL RDW (11.5-15.5) % Plt Count (150-450) k/uL MPV Neutrophils % % Lymphocytes % % Monocytes % % Eosinophils % % Basophils % % Neutrophils # (1.3-7.7) k/uL Lymphocytes # (1.0-4.8) k/uL Monocytes # (0-1.0) k/uL Eosinophils # (0-0.7) k/uL Basophils # (0-0.2) k/uL Macrocytosis PT (9.0-12.0) sec INR (<1.2) APTT (22.0-30.0) sec Sodium (137-145) mmol/L Potassium (3.5-5.1) mmol/L Chloride (98-107) mmol/L Carbon Dioxide (22-30) mmol/L Anion Gap mmol/L BUN (7-17) mg/dL Creatinine (0.52-1.04) mg/dL Est GFR (CKD-EPI)AfAm (>60 ml/min/1.73 sqM) Est GFR (CKD-EPI)NonAf (>60 ml/min/1.73 sqM) Glucose (74-99) mg/dL Calcium (8.4-10.2) mg/dL Magnesium (1.6-2.3) mg/dL Total Bilirubin (0.2-1.3) mg/dL AST (14-36) U/L ALT (4-34) U/L Alkaline Phosphatase (38-126) U/L Troponin I <0.012 (0.000-0.034) ng/mL Total Protein (6.3-8.2) g/dL Albumin (3.5-5.0) g/dL Critical Care Time Critical Care Time: Yes Total Critical Care Time: 35 Disposition Clinical Impression: ST elevation myocardial infarction (STEMI), Encounter for cardioversion p rocedure, V tach Disposition: ADMITTED IP TO THIS HOSP Referrals: [facility],Clinic [Primary Care Provider] - 1-2 days Time of Disposition: 16:36
[2021-07-10 16:18] LABS: Basophils # (A) 0.1 k/uL (0-0.2); Basophils % (A) 1 %; Eosinophils # (A) 0.2 k/uL (0-0.7); Eosinophils % (A) 2 %; HCT 39.3 % (34.0-46.0); Lymphocytes # (A) 2.3 k/uL (1.0-4.8); Lymphocytes % (A) 25 %; MCH 36.3 pg (25.0-35.0); Mean Platelet Volume 8.4; Monocytes # (A) 0.3 k/uL (0-1.0); Monocytes % (A) 3 %; Neutrophils # (A) 6.3 k/uL (1.3-7.7); Neutrophils % (A) 67 %; Platelet Count 202 k/uL (150-450); RBC 3.58 m/uL (3.80-5.40); WBC 9.3 k/uL (3.8-10.6)
[2021-07-10 16:21] LABS: MCV 109.8 fL (80.0-100.0); Macrocytosis Marked
[2021-07-10 16:37] LABS: INR 1.1 (<1.2); Partial Thromboplastin Time 22.2 sec (22.0-30.0); Prothrombin Time 11.5 sec (9.0-12.0)
[2021-07-10 16:40] LABS: Albumin 3.6 g/dL (3.5-5.0); Calcium 8.7 mg/dL (8.4-10.2); Magnesium 2.1 mg/dL (1.6-2.3); Potassium 5.6 mmol/L (3.5-5.1); Total Bilirubin 0.7 mg/dL (0.2-1.3)
--- NOTE | 2021-07-10 16:42 | XR ---
EXAMINATION TYPE: XR chest 1V portable DATE OF EXAM: 07/10/2021 COMPARISON: 07/03/2019 HISTORY: Chest pain TECHNIQUE: Single view FINDINGS: Heart and mediastinum are normal. Lungs are clear. Diaphragm is normal. Bony thorax appears normal. IMPRESSION: Normal chest. No change.
[2021-07-10] MEDS ORDERED: VERAPAMIL 2.5 MG/ML 2 ML AMP ONE (17:31)
[2021-07-10] MEDS ORDERED: LIDOCAINE 1% INJ 10MG/ML (20 ML MDV) ONE (17:31)
[2021-07-10] MEDS ORDERED: LIDOCAINE 1% INJ 10MG/ML (20 ML MDV) SQ ONE (17:44)
[2021-07-10] MEDS ORDERED: MIDAZOLAM 1 MG/ML 5 ML VIAL IV STA (17:46)
[2021-07-10] MEDS ORDERED: FLUMAZENIL 0.1 MG/ML 5 ML VIAL IVP STA (17:47)
[2021-07-10] MEDS ORDERED: IV FLUID CONTINUATION 1,000 ML IV ONE (17:47)
[2021-07-10] MEDS ORDERED: MIDAZOLAM 2 MG/2 ML VIAL IVP ONE (17:48)
[2021-07-10] MEDS ORDERED: HEPARIN SODIUM 1,000 UN/ML (10ML VL) ONE (17:49)
[2021-07-10] MEDS ORDERED: fentaNYL (PF) 50 MCG/ML 2 ML AMP ONE (17:52)
[2021-07-10] MEDS ORDERED: HEPARIN SODIUM 1,000 UN/ML (10ML VL) IVP ONE (17:52)
[2021-07-10] MEDS ORDERED: fentaNYL (PF) 50 MCG/ML 2 ML AMP IVP ONE (17:53)
[2021-07-10] MEDS ORDERED: IOPAMIDOL-370 125ML BTL INJ ONE (17:55)
[2021-07-10] MEDS ORDERED: RX INFO: IV CONTRAST WAS GIVEN 1 EACH MISC MISCELLANE PRN (18:04)
--- NOTE | 2021-07-10 18:06 | P.PCN ---
Date of Procedure: 07/10/21 Operative Findings: CARDIAC CATHETERIZATION PERFORMING PHYSICIAN: Jordan Hannah MD, RPVI PROCEDURE PERFORMED: 1. Selective right and left coronary angiogram INDICATION: Chest discomfort concerning for unstable angina COMPLICATION: None APPROACH: Right radial artery LEVEL OF SEDATION: Moderate with a sedation length of 14 minutes PROCEDURE DESCRIPTION: After obtaining an informed consent, the patient was brought to cardiac slab tripper. Local anesthesia was performed using lidocaine subcutaneously. The right radial artery was cannulated using Seldinger technique, the guidewire passed easily, following that we advanced a 5-Omani sheath dilator assembly, the wire and dilator were removed and sheath was flushed. Following that, 2 mg of verapamil along with 5000 unit heparin were given. Selective right and left coronary angiogram using a 6-Omani JR4 and JL 3.5 catheters. The procedure was completed there was no complication. SELECTIVE CORONARY ANGIOGRAM: The right coronary artery: Is a large caliber vessel and a dominant vessel. Its angiographically normal. Distally bifurcates into PDA and PLV branches both appeared to be angiographically normal. Left main: Is angiographically normal. Bifurcates into all CX and LAD. The left circumflex: Is a large caliber vessel and non-dominant vessel. Left circumflex is angiographically normal. Gives rise into an OM branch which appears to be angiographically normal. The left anterior descending artery: It is a large caliber vessel. Its angiographically normal. Gives rise into a large diagonal branch which seems to be angiographically normal. CONCLUSION: 1. Normal coronary angiogram POSTPROCEDURE MANAGEMENT: Medical treatment
--- NOTE | 2021-07-10 18:10 | P.CRDCN ---
History of Present Illness Consult date: 07/10/21 Chief complaint: Chest discomfort History of present illness: This is a very pleasant 61-year-old female patient with a past medical history significant for paroxysmal atrial fibrillation as well as history of thyroid disease whopresented to the emergency department complaining of chest discomfort. She was in her usual state of health until earlier today when she started experiencing discomfort in the middle of the chest without any associa suly symptoms of shortness of breath or dizziness or lightheadedness or sweating or presyncope or syncope. The EKG initially showed wide complex tachycardia concerning for V. tach. The differential diagnosis is atrial flutter. Because of the ongoing chest discomfort and heart catheterization was advised. The heart catheterization revealed normal coronaries. The procedure was performed from the right radial approach. Please note that the patient in the ER was hypotensive and she was received a shock and converted to normal sinus mechanism was narrow QRS and only nonspecific ST and T wave abnormalities. The patient was receiving flecainide and the EKG changes could be secondary to flecainide proarrhythmia. She is on oral anticoagulation. No history of coronary artery disease or congestive heart failure but she does have the paroxysmal atrial fibrillation and she follows with a balance engineer out of the town Past Medical History Past Medical History: Thyroid Disorder Additional Past Medical History / Comment(s): SCREENING History of Any Multi-Drug Resistant Organisms: None Reported Additional Past Surgical History / Comment(s): D & C Past Anesthesia/Blood Transfusion Reactions: No Reported Reaction Past Psychological History: Anxiety, Depression Past Alcohol Use History: None Reported Additional Past Alcohol Use History / Comment(s): QUIT SMOKING 20 YEARS AGO Past Drug Use History: None Reported - Past Family History Mother History Unknown: Yes Additional Family Medical History / Comment(s): PT ADOPTED-HHX UNKNOWN Medications and Allergies Home Medications Medication Instructions Recorded Confirmed Type Estradiol 3 mg PO BID 07/03/19 07/03/19 History Levothyroxine Sodium [Tirosint] 137 mcg PO DAILY 07/03/19 07/03/19 History Liothyronine Sodium [Cytomel] 5 mcg PO DAILY 07/03/19 07/03/19 History Naproxen 250 mg PO Q12H PRN 07/03/19 07/03/19 History Progesterone, Micronized 100 mg PO BID 07/03/19 07/03/19 History [Progesterone] buPROPion HCL [Wellbutrin SR] 150 mg PO BID 07/03/19 07/03/19 History Apixaban [Eliquis] 5 mg PO BID #60 tab 07/04/19 Rx Metoprolol Tartrate [Lopressor] 25 mg PO BID #60 tab 07/04/19 Rx Allergies Allergy/AdvReac Type Severity Reaction Status Date / Time No Known Allergies Allergy Verified 07/03/19 15:24 Physical Exam Vitals: Vital Signs Temp Pulse Resp BP Pulse Ox 07/10/21 17:08 64 18 112/74 99 07/10/21 16:50 60/40 07/10/21 16:37 82/42 07/10/21 16:35 150 H 18 70/40 99 07/10/21 16:10 97.6 F 141 H 18 125/91 98 Intake and Output 07/10/21 07/10/21 07/10/21 06:59 14:59 22:59 Intake Total 125 Balance 125 Intake: IV 125 Other: Weight 65.771 kg - Constitutional General appearance: no acute distress - Respiratory Respiratory: bilateral: CTA - Cardiovascular Rhythm: regular Heart sounds: normal: S1, S2 Results 07/10/21 16:10 07/10/21 16:10 Cardiac Enzymes 07/10/21 07/10/21 Range/Units 16:10 16:10 AST 54 H (14-36) U/L Troponin I <0.012 (0.000-0.034) ng/mL Coagulation 07/10/21 Range/Units 16:10 PT 11.5 (9.0-12.0) sec APTT 22.2 (22.0-30.0) sec CBC 07/10/21 Range/Units 16:10 WBC 9.3 (3.8-10.6) k/uL RBC 3.58 L (3.80-5.40) m/uL Hgb 13.0 (11.4-16.0) gm/dL Hct 39.3 (34.0-46.0) % Plt Count 202 (150-450) k/uL Comprehensive Metabolic Panel 07/10/21 Range/Units 16:10 Sodium 133 L (137-145) mmol/L Potassium 5.6 H (3.5-5.1) mmol/L Chloride 106 (98-107) mmol/L Carbon Dioxide 21 L (22-30) mmol/L BUN 22 H (7-17) mg/dL Creatinine 1.24 H (0.52-1.04) mg/dL Glucose 162 H (74-99) mg/dL Calcium 8.7 (8.4-10.2) mg/dL AST 54 H (14-36) U/L ALT 27 (4-34) U/L Alkaline Phosphatase 58 (38-126) U/L Total Protein 6.0 L (6.3-8.2) g/dL Albumin 3.6 (3.5-5.0) g/dL Current Medications Generic Name Dose Route Start Last Admin Trade Name Freq PRN Reason Stop Dose Admin Sodium Chloride 1,000 mls @ 75 mls/hr 07/10/21 18:15 Saline 0.9% IV 07/10/21 23:16 .[id number] PRANAY Miscellaneous Information 1 each 07/10/21 18:04 Rx Info: Iv Contrast Was Given 1 Each Misc MISCELLANE 07/12/21 18:04 DAILY PRN Per Protocol Intake and Output 07/10/21 07/10/21 07/10/21 06:59 14:59 22:59 Intake Total 125 Balance 125 Intake: IV 125 Other: Weight 65.771 kg Patient Weight 07/11/21 06:59 Weight 65.771 kg 07/10/21 16:10 07/10/21 16:10 Assessment and Plan Assessment: Assessment #1 wide-complex tachycardia. Differential diagnosis is ventricular tachycardia induced by flecainide versus atrial flutter #2 known paroxysmal atrial fibrillation #3 thyroid disease Plan #1 the patient cardioverted in the emergency department sinus mechanism #2 coronary angiogram was performed and showed no disease #3 we will obtain an echocardiogram was Doppler #4 continue beta yee #5 continue oral anticoagulation #6 follow up with the patient
[2021-07-10] MEDS ORDERED: SODIUM CHLORIDE 0.9% 1,000 ML IV SCH (18:15)
[2021-07-10] MEDS ORDERED: NON FORMULARY DRUG (Progesterone, Micronized [Progesterone] 100 MG Capsule) PO SCH (21:00)
[2021-07-10] MEDS: METOPROLOL TARTRATE 50 MG TAB PO SCH (21:12)
[2021-07-10] MEDS: buPROPion SR 150 MG TABLET.ER PO SCH (21:12)
[2021-07-10] MEDS: APIXABAN 5 MG TAB PO SCH (21:12)
[2021-07-11] MEDS: APIXABAN 5 MG TAB PO SCH (07:33)
[2021-07-11] MEDS: buPROPion SR 150 MG TABLET.ER PO SCH (07:33)
[2021-07-11] MEDS: METOPROLOL TARTRATE 50 MG TAB PO SCH (07:34)
[2021-07-11 08:31] VITALS: PULSE 58; RESP 16
[2021-07-11] MEDS ORDERED: FLECAINIDE 50 MG TAB PO SCH (10:30)
[2021-07-11] MEDS ORDERED: diphenhydrAMINE 25 MG CAP PO STA (10:32)
[2021-07-11 10:48] VITALS: BP 143/80; TEMP 97.5
[2021-07-11 11:14] LABS: Calcium 8.5 mg/dL (8.4-10.2); Potassium 4.3 mmol/L (3.5-5.1)
--- NOTE | 2021-07-11 11:44 | P.HPIM ---
History of Present Illness H&P Date: 07/11/21 Chief Complaint: Chest pain Patient is a 61-year-old female with a known history of paroxysmal atrial fibrillation on anticoagulation with Eliquis, hypothyroidism presents to ER with complaints of chest pain/discomfort mid retrosternal. Denied any associated nausea or vomiting. No shortness of breath.. Denied any recent illnesses. Patient is on follow-up with her circulation assistant and was previously on flecainide which has been discontinued. Patient was started on metoprolol but dose reduced to 25 mg twice daily recently. Since then patient has been having tachycardia. Patient was advised to take extra dose of metoprolol for that. Yesterday she took double the dose at noon but she still having chest pains and tachycardia and made her to come to ER. Patient is also diaphoretic and mild short of breath when she came to ER. Heart rate was in 140s to 150s on admission. Patient became hypotensive and underwent cardioversion in the ER, converted to sinus rhythm. Initial rhythm showed wide complex QRS and due to ongoing chest pain patient was taken to cardiac catheterization. Patient underwent selective left and right heart catheterization showed normal coronary angiogram. Chest x-ray showed normal chest. No change. Laboratory showed WBC 9.3 hemoglobin 13.0 and platelets 202 sodium 133 potassium 5.6 chloride 106 bicarb is 21 BUN 22 and creatinine 1.24 and blood sugar was 162. Troponin x1 - albumin 3.6 Review of Systems Constitutional: Patient denies any fever or chills . No generalized weakness or weight loss. Abdomen: Patient denied nausea vomiting and diarrhea and abdominal pain. Palpitations. Cardiovascular: Patient denies any chest pain or short of breath no palpitations. Respiratory: patient denied any cough is from production. No shortness of breath Neurologic: Patient denied any numbness or tingling headache. Musculoskeletal: Patient denies any complaints of joint swelling or deformity. Skin: Negative Psychiatric: Negative Endocrine: No heat or cold intolerance. No recent weight gain. Genitourinary: No dysuria or hematuria. All other 14 point ROS negative except the above Past Medical History Past Medical History: Thyroid Disorder Additional Past Medical History / Comment(s): Hypothyroid, Cardioversion 09/2021 History of Any Multi-Drug Resistant Organisms: None Reported Additional Past Surgical History / Comment(s): D & C Past Anesthesia/Blood Transfusion Reactions: No Reported Reaction Smoking Status: Never smoker - Past Family History Mother History Unknown: Yes Family Medical History: CVA/TIA Additional Family Medical History / Comment(s): PT ADOPTED-HHX UNKNOWN Medications and Allergies Home Medications Medication Instructions Recorded Confirmed Type Progesterone, Micronized 100 mg PO HS 07/03/19 07/10/21 History [Progesterone] buPROPion HCL [Wellbutrin SR] 150 mg PO BID 07/03/19 07/10/21 History Apixaban [Eliquis] 5 mg PO BID #60 tab 07/04/19 07/10/21 Rx Acyclovir [Zovirax] 400 mg PO BID 07/10/21 07/10/21 History Flecainide Acetate 75 mg PO Q12H 07/10/21 07/10/21 History Levothyroxine Sodium [Tirosint] 112 mcg PO DAILY 07/10/21 07/10/21 History Metoprolol Tartrate [Lopressor] 50 mg PO BID 30 Days #60 tab 07/11/21 Rx Allergies Allergy/AdvReac Type Severity Reaction Status Date / Time No Known Allergies Allergy Verified 07/10/21 18:45 Physical Exam Vitals: Vital Signs Temp Pulse Pulse Resp BP BP Pulse Ox 07/11/21 07:33 98.2 F 58 L 16 146/69 97 07/11/21 04:00 68 18 142/70 98 07/10/21 23:34 98.0 F 62 16 124/71 98 07/10/21 21:49 115/61 07/10/21 20:49 65 16 107/61 98 07/10/21 20:00 64 18 100/55 99 07/10/21 19:49 113/63 07/10/21 19:19 123/60 07/10/21 18:49 57 L 16 126/63 100 07/10/21 18:34 60 16 109/68 100 07/10/21 17:08 64 18 112/74 99 07/10/21 16:50 60/40 07/10/21 16:37 82/42 07/10/21 16:35 150 H 18 70/40 99 07/10/21 16:10 97.6 F 141 H 18 125/91 98 Intake and Output 07/10/21 07/11/21 07/11/21 22:59 06:59 14:59 Intake Total 125 535 Balance 125 535 Intake: IV 125 10 Invasive Line 2 10 Intake, IV Titration 525 Amount Sodium Chloride 0.9% 1, 525 000 ml @ 75 mls/hr IV . [id number] [facility] Rx#:[id number] Other: Voiding Method Toilet # Voids 2 3 Weight 65.771 kg PHYSICAL EXAMINATION: Patient is lying in the bed comfortably, no acute distress, awake alert and oriented.. HEENT: Normocephalic. Neck is supple. Pupils reactive. Nostrils clear. Oral cavity is moist. Neck reveals no JVD, carotid bruits, or thyromegaly. CHEST EXAMINATION: Trachea is central. Symmetrical expansion. Lung kelly clear to auscultation and percussion. CARDIAC: Normal S1, S2 with no gallops. No murmurs ABDOMEN: Soft. Bowel sounds normal. No organomegaly. No abdominal bruits. Extremities: reveal no edema. No clubbing or cyanosis Neurologically awake, alert, oriented x3 with well-coordinated movements. No focal deficits noted Skin: No rash or skin lesions. Psychiatric: Coperative. Nonsuicidal Musculoskeletal: No joint swelling or deformity. Normal range of motion. Results CBC & Chem 7: 07/10/21 16:10 07/11/21 10:34 Labs: Abnormal Lab Results - Last 24 Hours (Table) 07/10/21 07/10/21 Range/Units 16:10 16:10 RBC 3.58 L (3.80-5.40) m/uL MCV 109.8 H (80.0-100.0) fL MCH 36.3 H (25.0-35.0) pg Macrocytosis Marked A Sodium 133 L (137-145) mmol/L Potassium 5.6 H (3.5-5.1) mmol/L Carbon Dioxide 21 L (22-30) mmol/L BUN 22 H (7-17) mg/dL Creatinine 1.24 H (0.52-1.04) mg/dL Glucose 162 H (74-99) mg/dL AST 54 H (14-36) U/L Total Protein 6.0 L (6.3-8.2) g/dL Thrombosis Risk Factor Assmnt - DVT/VTE Prophylaxis DVT/VTE Prophylaxis: Pharmacologic Prophylaxis ordered - Choose All That Apply Any of the Below Risk Factors Present?: Yes Each Factor Represents 1 point: Age 41-60 years, Varicose veins Other congenital or acquired thrombophilia - If yes, enter type in comment: No Thrombosis Risk Factor Assessment Total Risk Factor Score: 2 Thrombosis Risk Factor Assessment Level: Low Risk Assessment and Plan Assessment: Chest pain with wide-complex tachycardia. DD include ventricular tachycardia induced by flecainide versus atrial flutter. Status post cardiac catheterization showed normal coronaries. Paroxysmal atrial fibrillation with rapid ventricular rate On anticoagulation with Eliquis at home Acute kidney injury likely prerenal improved now. Hypothyroidism DVT prophylaxis patient is already on full anticoagulation Plan: Patient is being carried on telemetry monitoring. Underwent cardioversion in the ER and converted to sinus this rhythm. Patient patient is status post cardiac catheterization which showed normal coronaries. patient is on metoprolol increased dose to metoprolol increased dose to 50 mg bid. Patient denied any complaints of chest pain now. Continuous telemetry monitoring. Time with Patient: Greater than 30
--- NOTE | 2021-07-11 12:31 | ECHOF ---
Referral Reason:Arrythmia MEASUREMENTS -------- HEIGHT: 167.6 cm WEIGHT: 65.8 kg BP: 142/70 IVSd: 0.9 cm (0.6 - 1.1) LVIDd: 4.1 cm (3.9 - 5.3) LVPWd: 1.0 cm (0.6 - 1.1) EDV(Teich): 75 ml IVSs: 1.5 cm LVIDs: 2.6 cm LVPWs: 1.3 cm %IVS Thck: 66 % ESV(Teich): 25 ml EF(Teich): 67 % %FS: 37 % SV(Teich): 51 ml LA Diam: 3.1 cm (2.7 - 3.8) RVIDd: 2.5 cm (< 3.3) LALs A4C: 5.4 cm LAAs A4C: 19.0 cm LAESV A-L A4C: 56 ml LAESV MOD A4C: 55 ml LALs A2C: 5.9 cm LAAs A2C: 19.0 cm LAESV A-L A2C: 52 ml LAESV MOD A2C: 50 ml LAESV(A-L): 56 ml LAESV Index (A-L): 32.21 ml/m Ao Diam: 3.0 cm (2.0 - 3.7) AV Cusp: 2.0 cm (1.5 - 2.6) EPSS: 0.8 cm MV E Eris: 1.30 m/s MV DecT: 129 ms MV Dec [place]: 10.0 m/s MV A Eris: 0.64 m/s MV E/A Ratio: 2.03 MV PHT: 37 ms AV Vmax: 1.62 m/s AV maxP.53 mmHg TR Vmax: 3.03 m/s TR maxP.84 mmHg RAP: 5.00 mmHg RVSP: 41.84 mmHg MV EF SLOPE: 94.35 mm/s (70 - 150) MV EXCURSION: 14.27 mm (> 18.000) FINDINGS -------- Sinus rhythm. This was a technically good study. The left ventricular size is normal. Left ventricular wall thickness is normal. Overall left vent ricular systolic function is normal with, an EF between 60 - 65 %. The right ventricle is normal in size. LA is midly dilated 29-33ml/m2. The right atrium is normal in size. Interatrial and interventricular septum intact. The aortic valve is trileaflet, and appears structurally normal. No aortic stenosis or regurgitation. Mild mitral regurgitation is present. Mild tricuspid regurgitation present. There is mild pulmonary hypertension. The right ventricular systolic pressure, as measured by Doppler, is 41.84mmHg. The pulmonic valve is normal. The aortic root size is normal. Normal inferior vena cava with normal inspiratory collapse consistent with estimated right atrial pre ssure of 5 mmHg. There is no pericardial effusion. CONCLUSIONS -------- 1. The left ventricular size is normal. 2. Left ventricular wall thickness is normal. 3. Overall left ventricular systolic function is normal with, an EF between 60 - 65 %. 4. LA is midly dilated 29-33ml/m2. 5. Mild mitral regurgitation is present. 6. Mild tricuspid regurgitation present. 7. There is mild pulmonary hypertension. 8. The right ventricular systolic pressure, as measured by Doppler, is 41.84mmHg. 9. There is no pericardial effusion. [employer] TECHNICIAN: Alessandra Walls RDCS
--- NOTE | 2021-07-11 12:39 | P.PN ---
Subjective This is a very pleasant 61-year-old female patient with a past medical history significant for paroxysmal atrial fibrillation on Eliquis, thyroid disease. She follows with . Patient presented to the emergency department complaining of chest discomfort. The EKG initially showed wide complex tachycardia concerning for V. tach vs atrial flutter. She was hypotensive and cardioverted in the ER to normal sinus mechanism was narrow QRS and only nonspecific ST and T wave abnormalities. Because of the ongoing chest discomfort and heart catheterization was advised. She underwent heart catheterization with Dr. Hannah on 07/10/2021 which revealed normal coronaries. Patient seen and examined at bedside, no acute distress. She denies any further chest pain. She denies any shortness of breath. Right radial cath site, clean, dry, intact, no hematoma. Telemetry reviewed patient in sinus mechanism with heart rate 5560s. Echocardiogram revealed ejection fraction of 6065 percent, mild mitral regurgitation and mild mild tricuspid regurgitation Patient currently maintained on metoprolol titrate 50 mg twice a day, Eliquis 5 mg twice a day Blood pressure 143/80, heart rate 58, afebrile, oxygen saturations 96% on room air GENERAL: Well-appearing, well-nourished and in no acute distress. NECK: Supple without JVD or thyromegaly. LUNGS: Breath sounds clear to auscultation bilaterally. Respiration equal and unlabored. No wheezes, rales or rhonchi. HEART: Regular rate and rhythm without murmurs, rubs or gallops. S1 and S2 heard. EXTREMITIES: Normal range of motion, no edema. No clubbing or cyanosis. Peripheral pulses intact. ASSESSMENT Wide-complex tachycardia. Differential diagnosis is ventricular tachycardia induced by flecainide versus atrial flutter Known paroxysmal atrial fibrillation on Eliquis History of hypothyroidism PLAN Restart Flecainide 75mg BID Continue metoprolol tartrate at 50mg BID Continue Eliquis Recommend outpatient thyroid management Patient to follow up with Dr. Orozco outpatient, plan for possible ablation in the near future. From cardiology perspective, patient stable to be discharged home today Nurse Practitioner note has been reviewed, I agree with a documented findings and plan of care. Patient was seen and examined. Objective - Vital Signs Vital signs: Vital Signs Temp 98.2 F 07/11/21 07:33 Pulse 58 L 03/16/22 07:33 Resp 16 07/11/21 07:33 BP 146/69 07/11/21 07:33 Pulse Ox 97 07/11/21 07:33 Intake & Output 07/10/21 07/11/21 07/11/21 18:59 06:59 18:59 Intake Total 125 535 Balance 125 535 Weight 65.771 kg Intake: IV 125 10 Invasive Line 2 10 Intake, IV Titration 525 Amount Sodium Chloride 0.9% 1, 525 000 ml @ 75 mls/hr IV . [id number] [facility] Rx#:[id number] Other: Voiding Method Toilet # Voids 2 3 - Labs CBC & Chem 7: 07/10/21 16:10 07/11/21 10:34 Labs: Abnormal Lab Results - Last 24 Hours (Table) 07/10/21 07/10/21 Range/Units 16:10 16:10 RBC 3.58 L (3.80-5.40) m/uL MCV 109.8 H (80.0-100.0) fL MCH 36.3 H (25.0-35.0) pg Macrocytosis Marked A Sodium 133 L (137-145) mmol/L Potassium 5.6 H (3.5-5.1) mmol/L Carbon Dioxide 21 L (22-30) mmol/L BUN 22 H (7-17) mg/dL Creatinine 1.24 H (0.52-1.04) mg/dL Glucose 162 H (74-99) mg/dL AST 54 H (14-36) U/L Total Protein 6.0 L (6.3-8.2) g/dL
== END 2021-07-11 12:02 | disposition home or self-care (01) | DRG 287 ==
LOC: EC 16:00 → 3SCARD 16:36 → EC 17:15 → 3SCARD 18:12
PROVIDERS: ADMIT Internal Medicine; ATTEND Internal Medicine
PROC: 5A2204Z Restoration of Cardiac Rhythm, Single (ICD-10-PCS; principal; 2021-07-10 17:12)
PROC: B2111ZZ Fluoroscopy of Multiple Coronary Arteries using Low Osmolar Contrast (ICD-10-PCS; principal; 2021-07-10 17:12)
PROC: 4A023N7 Measurement of Cardiac Sampling and Pressure, Left Heart, Percutaneous Approach (ICD-10-PCS; principal; 2021-07-10 17:12)
DX: I47.2 Ventricular tachycardia (principal); N17.9 Acute kidney failure, unspecified; I48.92 Unspecified atrial flutter; I44.7 Left bundle-branch block, unspecified; I48.0 Paroxysmal atrial fibrillation; Z79.01 Long term (current) use of anticoagulants; Z79.890 Hormone replacement therapy; Z79.899 Other long term (current) drug therapy; Z82.3 Family history of stroke; Z87.891 Personal history of nicotine dependence; E03.9 Hypothyroidism, unspecified; I08.1 Rheumatic disorders of both mitral and tricuspid valves; I95.9 Hypotension, unspecified
CPT/HCPCS: 36415; 71045; 80048; 80053; 83735; 84484; 85025; 85610; 85730; 93005; 93306; 93454; 99291